=== PATIENT | female | born 1975 | race Caucasian/White ===

== ENCOUNTER 2016-08-12 12:13 | Emergency (ER) | payer OTHER ==
[2016-08-12 13:13] LABS: HEMOGLOBIN 14.7 gm/dl (12.3-15.3); RED BLOOD COUNT 4.66 M/UL (4.00-5.10); WHITE BLOOD COUNT 8.2 K/UL (4.5-11.0)
[2016-08-12 13:32] LABS: BUN/CREATININE RATIO 17 (0-10)
== END 2016-08-12 16:43 | disposition home or self-care (01) ==
LOC: ER1 12:13
PROVIDERS: Emergency Medicine
DX: N83.201 Unspecified ovarian cyst, right side (principal); F17.200 Nicotine dependence, unspecified, uncomplicated
CPT/HCPCS: 36415; 80053; 81001; 82150; 83690; 84703; 85025; 96361; 96374; 96375; 99284; J2270; J2405; J7050; Q9962

== ENCOUNTER 2016-10-28 21:16 | Emergency (ER) | payer OTHER | END 2016-10-29 01:15 | disposition left against medical advice (07) | LOC: ER1 21:16 | DX: R07.89 Other chest pain (principal); F17.210 Nicotine dependence, cigarettes, uncomplicated; Z98.51 Tubal ligation status; Z79.899 Other long term (current) drug therapy | CPT/HCPCS: 93005 ==

== ENCOUNTER 2016-10-29 15:41 | Emergency (ER) | payer OTHER ==
[2016-10-29 18:39] LABS: HEMOGLOBIN 15.7 gm/dl (12.3-15.3); RED BLOOD COUNT 4.92 M/UL (4.00-5.10); WHITE BLOOD COUNT 6.9 K/UL (4.5-11.0)
[2016-10-29 19:05] LABS: BUN/CREATININE RATIO 14 (0-10)
== END 2016-10-29 21:20 | disposition home or self-care (01) ==
LOC: ER1 15:41
PROVIDERS: Emergency Medicine
DX: R07.89 Other chest pain (principal); F17.210 Nicotine dependence, cigarettes, uncomplicated; Z98.51 Tubal ligation status; Z79.899 Other long term (current) drug therapy
CPT/HCPCS: 36415; 71010; 80053; 82550; 82553; 83605; 83874; 84484; 85025; 85379; 93005; 99285